=== PATIENT | female | born 1935 | race African-American/Black ===

== ENCOUNTER 2016-09-18 16:54 | Inpatient (IN) | payer OTHER ==
[~2016-09-18] VITALS: Ht 152.4 cm; Wt 61.0 kg
--- NOTE | ~2016-09-18 | HC ---
[facility] [place] [address] CONSULTATION Name: JANNETH RICHARDS Room #: 460-P ADM IN M.R.#: [id number] Admission: 09/18/16 Attend Phys: Bobby Chun MD Discharge: Date of : 37 Report #: [id number] THIS REPORT FOR: //name// CC: Bobby Chun REASON FOR CONSULTATION: End-stage renal disease. REASON FOR PRESENTATION: Weakness, confusion and lethargy. HISTORY OF PRESENT ILLNESS: The patient a prison facility who stays at the [facility]. She is able to provide me with most of her history. She stated that she felt weak the day of the admission and the nursing staff of the nursing facility noted that she had some mental status issues and was transferred for further evaluation and management. She was found to be a little bit hypertensive. Appropriate workup was initiated. I was consulted to manage her end-stage renal disease. In terms of renal-related issues, she has end-stage renal disease, maintained on hemodialysis every Saturday, Saturday and Saturday. She is not really sure what the cause of her end-stage renal disease was. She denies any headache. No dizziness. Evaluation clinically revealed that the patient is having symptoms consistent with stroke. She was deemed non-candidate for acute thrombolysis. She was admitted for further evaluation and management. She follows with Dr. Odonnell with [facility]. She dialyzes, as I have stated, Saturday, Saturday and Saturday. It does look like that she carries a long-standing diabetes mellitus and her end-stage renal disease is attributed to that. PAST MEDICAL HISTORY: 1. End-stage renal disease, maintained on dialysis for 6 and a half years, followed by Dr. Odonnell with [facility]. 2. Diabetes mellitus. 3. Hypertension. 4. Status post CABG times 3. 5. Anemia of chronic disease. MEDICATIONS: 1. Amlodipine. 2. Hydralazine. 3. Ipratropium. 4. Lantus. 5. Lispro. ALLERGIES: IBUPROFEN and SIMVASTATIN. SOCIAL HISTORY: She resides in a nursing facility. No drug or alcohol abuse. FAMILY HISTORY: She tells me that diabetes actually runs in her family. [facility] [address] [place] [address] CONSULTATION Name: JANNETH RICHARDS Room #: 460-P [facility] IN M.R.#: [id number] Admission: 09/18/16 Attend Phys: Bobby Chun MD Discharge: Date of : 37 Report #: [id number] REVIEW OF SYSTEMS: GENERAL: Significant for weakness. CARDIOVASCULAR: No chest pain or palpitation. PULMONARY: No cough or hemoptysis. GASTROINTESTINAL: No nausea or vomiting. GENITOURINARY: Anuric. MUSCULOSKELETAL: She is wheelchair bound and able to transfer herself from the bed to the chair and vice versa. PHYSICAL EXAMINATION: GENERAL: The patient is alert, oriented, in no apparent distress. VITAL SIGNS: Most recent blood pressure was 107/57. She was afebrile with a temperature of 37.1. HEAD AND NECK: No jugular venous distention. CHEST: Decreased air entry bilaterally with crackles. CARDIOVASCULAR: Regular with a soft systolic murmur. No rub detected. ABDOMEN: Soft, nontender, with no hepatosplenomegaly. LOWER EXTREMITIES: No edema. UPPER EXTREMITIES: Right AV fistula. LABORATORY DATA: Laboratory values reviewed. Mildly elevated troponin at 1.2. Potassium 4.5, creatinine 4.2 and BUN 28. Hemoglobin 10.9. IMAGES: Chest x-ray with very mild pulmonary congestions. Head CT, no acute abnormalities detected. ASSESSMENT, IMPRESSION AND PLAN: 1. End-stage renal disease. 2. Diabetes mellitus. 3. Hypertension. 4. Status post coronary artery bypass graft. 5. Mildly elevated troponin. 6. Dialysis will be arranged today with very mild fluid pull. 7. Hold some of her blood pressure medications. 8. Stroke workup is being implemented. She is deemed non-candidate for thrombolysis. 9. Blood sugar control. 10. If the patient wants to be aggressive with her therapy, we can address her troponin. However, I doubt that she will have any acute coronary events, even though she has the high risk including her previous history of CABG, comorbid conditions including diabetes mellitus and hypertension. <ELECTRONICALLY SIGNED> By: Rob Horton MD 09/20/16 0826 1107 1202 Rob Horton MD /nt
--- NOTE | ~2016-09-18 | EEG ---
[facility] [place] [address] ELECTROENCEPHALOGRAM Name: JANNETH RICHARDS Room #: 460-P ADM IN M.R.#: [id number] Admission: 09/18/16 Attend Phys: Bobby Chun MD Discharge: Date of : 37 Report #: [id number] THIS REPORT FOR: //name// CC: Bobby Chun DATE OF EE08/23/2016 This patient is complaining of some weakness. EEG was done to further evaluate that. This background activity in this patient's EEG is about 8 Hz and 15 microvolt. It is a poorly formed background activity. This patient goes to sleep that is associated with bilateral slowing and vertex sharp waves. Photic stimulation is unremarkable. IMPRESSION: Moderately abnormal EEG because it is disorganized and poorly formed. That is a nonspecific abnormality, which can occur with encephalopathy, effect of psychotropic medication, dementia, etc. Clinical correlation is recommended. Thank you very much for this referral. <ELECTRONICALLY SIGNED> By: Melvin Pereira MD 09/21/16 1930 1741 29 Melvin Pereira MD /nt
--- NOTE | ~2016-09-18 | 2DMMODE ---
[facility] [place] [address] 2 D/M-MODE ECHOCARDIOGRAM Name: JANNETH RICHARDS Room #: 460-P ADM IN .R.#: [id number] Admission: 09/18/16 Attend Phys: Bobby Chun MD Discharge: Date of : 37 Date of Service: 09/19/16 1054 Report #: [id number] THIS REPORT FOR: //name// APPROVED REPORT EXAM: Comprehensive 2D, Doppler, and color-flow Echocardiogram Patient Location: Bedside/ROOM 460 Blood Pressure: 107/57 mmHg HR: 71 bpm Rhythm: NSR Other Information Study Quality: Good Indications CVA/TIA Hx: CABG, HTN, DM, COPD Echo Enhancing Agent Indication: Rule out Shunt Agent/Amount Used: Agitated Saline cc 2D Dimensions RVDd: 42.68 mm LVEF(%): 45.93 (>50%) IVSd: 11.69 (7-11mm) LVOT Diam: 19.44 (18-24mm) LVDd: 45.66 mm PWd: 12.24 (7-11mm) Ascending Aorta: 36.65 mm LVDs: 35.24 (25-40mm) Aortic Root: 30.00 mm Cage's LVEF: 45.93 % Volumes Left Atrial Volume (Systole) Single Plane 4CH: 55.38 mL Single Plane 2CH: 59.49 mL LA ESV Index: 33.00 mL/m2 Aortic Valve AoV Peak Sanket.: 1.87 m/s AO Peak Gr.: 14.02 mmHg LV Max P.80 mmHg LV Max: 1.20 m/s Mitral Valve [facility] [address] [place] [address] 2 D/M-MODE ECHOCARDIOGRAM Name: JANNETH RICHARDS Room #: 460-P [facility] IN ..#: [id number] Admission: 09/18/16 Attend Phys: Bobby Chun MD Discharge: Date of : 37 Date of Service: 09/19/16 1054 Report #: [id number] MV PHT: 51.11 ms MV E Max Sanket.: 1.03 m/s E/A Ratio: 0.9 MV A Sanket.: 1.12 m/s MV Decel. Time: 176.24 ms TDI E/Lateral E': 17.00 E/Medial E': 444.00 Pulmonary Valve PV Peak Sanket.: 0.95 m/s PV Peak Gr.: 3.59 mmHg Tricuspid Valve TR Peak Sanket.: 3.02 m/s RAP Estimate: 5.00 mmHg TR Peak Gr.: 36.36 mmHg RVSP: 41.00 mmHg Left Ventricle The left ventricle is normal size. Regional wall motion abnormalities are noted. Mild concentric left ventricular hypertrophy. Left ventricular systolic function is normal. LVEF is 50-55%. Grade I - abnormal relaxation pattern. Right Ventricle Right ventricle is borderline dilated. Right ventricle is possibly hypokinetic not well visualized. Atria Left atrium is borderline dilated. IAS is mobile. Injection of bubbles documented no interatrial shunt. Right atrium is borderline dilated. Aortic Valve Aortic valve leaflets are moderately thickened. No aortic regurgitation is present. There is no aortic valvular stenosis. Mitral Valve Mitral valve leaflets are mildly thickened. Trace mitral regurgitation. Tricuspid Valve The tricuspid valve is normal in structure. There is moderate tricuspid regurgitation. The right atrial pressure is estimated at 5 mmHg. There is moderate pulmonary hypertension with an estimated PAP of 41mmHg. Pulmonic Valve The pulmonary valve is normal in structure. Mild pulmonic [address] [address] 2 D/M-MODE ECHOCARDIOGRAM Name: JOVAN RICHARDSARET Room #: 460-P [facility] IN .R.#: [id number] Admission: 09/18/16 Attend Phys: Bobby Chun MD Discharge: Date of : 37 Date of Service: 09/19/16 1054 Report #: [id number] regurgitation. Great Vessels The aortic root is normal in size. IVC is normal in size and collapses >50% with inspiration. Pericardium There is no pericardial effusion. <Conclusion> The left ventricle is normal size. Mild concentric left ventricular hypertrophy. LVEF is 50-55%. Right ventricle is borderline dilated. Right ventricle is possibly hypokinetic not well visualized. Left atrium is borderline dilated. Right atrium is borderline dilated. Aortic valve leaflets are moderately thickened. Mitral valve leaflets are mildly thickened. Trace mitral regurgitation. There is moderate tricuspid regurgitation. The right atrial pressure is estimated at 5 mmHg. There is moderate pulmonary hypertension with an estimated PAP of 41mmHg. Mild pulmonic regurgitation. <ELECTRONICALLY SIGNED> By: Carlos Manuel Saleem MD 09/19/16 1054 1054 1054 Carlos Manuel Saleem MD /INF
--- NOTE | ~2016-09-18 | HC ---
[facility] [place] [address] CONSULTATION Name: JANNETH RICHARDS Room #: 460-P ADM IN M.R.#: [id number] Admission: 09/18/16 Attend Phys: Bobby Chun MD Discharge: Date of : 37 Report #: [id number] THIS REPORT FOR: //name// CC: Bobby Chun DATE OF SERVICE: 09/19/2016 HISTORY OF PRESENT ILLNESS: This is a 81-year-old female patient who was evaluated by me for the possibility of stroke. She lives in [facility]. She was found to be confused and lethargic on the day of admission. It was at least moderately severe. It came in spontaneously. Nothing was making it better or worse. This was different than her baseline. She was brought to Emergency Room and worked up and was admitted. She has improved since then. She denies any previous history of similar symptoms, but the history is not reliable. REVIEW OF SYSTEMS: Indicate she uses a wheelchair. It is not certain what the reason for that is. Presently, she is complaining of foot pain. She really do not know how long it is going on. She does indicate she has diabetes. She has end-stage renal disease and she is on dialysis. She has gastroesophageal reflux. She has a history of coronary artery disease and hypertension. Record indicates that she has some dementia. She does not complain of any new eye, ENT, cardiac, respiratory, GI, , constitutional, dermatological, hematological, psychiatric, throat symptoms. She is a diabetic and she is complaining of foot pain. PAST MEDICAL HISTORY: Negative for stroke according to the patient, but MRI does show old stroke. FAMILY HISTORY: Negative for early age stroke. SOCIAL HISTORY: She still smokes. PHYSICAL EXAMINATION: Indicates she is alert. She is responsive. She can tell me what month it is. She knows what hospital she is in. Her speech looks intact and fund of knowledge and memory is somewhat diminished but may be her baseline. Cranial nerve examination 2-12 is mostly unremarkable. She has symmetrical strength, sensation, reflexes and tone in all 4 extremities. Reflexes are symmetrically diminished. Position sense looks intact. There is no cerebellar sign. I tried to look at the patient's fundus. Her pupils are small and I could not look at it. There is no meningeal sign. There is no carotid bruit. She is a well-developed individual who does not have any dysmorphic features of eyes, ears and face. Her vision and hearing looks adequate. She does not have a thyroid mass. Her heart sounds looks unremarkable and she does not have any [facility] [address] [place] [address] CONSULTATION Name: JANNETH RICHARDS Room #: [address] [place] [address] IN M.R.#: [id number] Admission: 09/18/16 Attend Phys: Bobby Chun MD Discharge: Date of : 37 Report #: [id number] loud murmur. She does have some rhonchi on both sides, but there is no marked respiratory difficulty. Her pulses are difficult to feel and she has no edema, cyanosis or jaundice. Vital signs indicate a blood pressure of 107/57, temperature is 98.8, pulse is 74 and respiration is 20. LABORATORY DATA: Indicates that she is anemic and her sodium is 134 and creatinine is 4.2. Blood glucose is 289. She did have an MRI and a carotid Doppler which was reviewed. The MRI shows old stroke, but no new stroke. TREATMENT: This patient had the above described episode. I am not sure what the etiology of this was. She does not have any radiographic evidence for stroke. It is possible it was TIA, but it is also possible it was encephalopathy from systemic problems. She has a previous stroke on her MRI and if she has encephalopathy, then she will have focal signs because of that stroke. That stroke does not appear to be new and does not appear to be the cause of the patient's problem. However, we need to do some further workup to decide about secondary prophylaxis. She is already on aspirin. We will check other workup as ordered and see if there is a need for statin. RECOMMENDATION: 1. Lipid profile. 2. EEG. 3. More blood workup as I ordered. 4. See if statin is indicated in this patient. 5. We might change her to a full dose of aspirin depending upon the other workup. 6. We will check an echo which is already ordered. 7. We will see what this workup show and decide about the further workup depending upon the outcome of this testing. Thank you very much for this referral. <ELECTRONICALLY SIGNED> By: Melvin Pereira MD 09/21/16 1926 1755 1950 Melvin Pereira MD /nt
--- NOTE | ~2016-09-18 | EEG ---
[facility] [place] [address] ELECTROENCEPHALOGRAM Name: JANNETH RICHARDS Room #: 460-P [facility] IN M.R.#: [id number] Admission: 09/18/16 Attend Phys: Bobby Chun MD Discharge: 09/27/16 Date of : 37 Report #: [id number] THIS REPORT FOR: //name// CC: Bobby Chun DATE OF SERVICE: 09/21/2016 INDICATION FOR PROCEDURE: This patient is being evaluated for altered mental status. INTERPRETATION: EEG was done by placing the electrodes by standard 10-20 system of electrode placement. Both referential and sequential montages were used for recording. Background activity in this patient's EEG is about 8 Hz and 25 microvolt. This background activity is intermixed with some theta range slowing. The patient goes to sleep that is associated with bilateral slowing and vertex sharp waves. Photic stimulation is unremarkable. Throughout the record, no active epileptiform activity was noticed. IMPRESSION: Moderately abnormal electroencephalogram because it is disorganized and poorly formed. That is a nonspecific abnormality, which can occur with encephalopathy, effect of psychotropic medication, postictal period. No active epileptiform activity was noticed during this record. Thank you very much for this referral. <ELECTRONICALLY SIGNED> By: Melvin Pereira MD 10/01/16 0628 1843 30 Melvin Pereira MD /nt
--- NOTE | ~2016-09-18 | EKG ---
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
--- NOTE | ~2016-09-18 | H ---
[facility] [place] [address] HISTORY AND PHYSICAL Name: JANNETH RICHARDS Room #: 460-P [facility] IN M.R.#: [id number] Admission: 09/18/16 Attend Phys: Bobby Chun MD Discharge: 09/27/16 Date of : 37 Report #: [id number] THIS REPORT FOR: //name// CC: Bobby Chun DATE OF SERVICE: 09/18/2016 CHIEF COMPLAINT: Altered mental status. HISTORY OF PRESENT ILLNESS: The patient is a 81-year-old -Chinese female who resides at [facility]. At baseline, she is wheelchair bound, but able to wheel herself up about the facility. She smokes 3 cigarettes a day and is at baseline, oriented x 3, though she has some underlying dementia. On the day of admission, nursing staff reported that she had noted weakness, confusion and lethargy. It was unknown how long she had been this way. She was brought to [facility] Emergency Room for evaluation where she was felt to have findings consistent with an acute stroke. She was given aspirin since it was unknown how long she had been this way. It was determined that she was not a candidate for acute thrombolysis. She was given aspirin and admitted for further medical management. PAST MEDICAL HISTORY: End-stage renal disease, on hemodialysis for 6-1/2 years, normally followed by Dr. Rahul Odonnell, diabetes mellitus type 2, gastroesophageal reflux disease, hypertension, coronary artery disease, goiter and dementia, anemia of chronic renal disease. ALLERGIES: IBUPROFEN and SIMVASTATIN. MEDICATIONS: Amlodipine 10 mg daily, artificial tears 1 drop both eyes every 4 hours as needed, Ativan 0.5 mg on Saturday, Saturday and Saturday prior to dialysis, gabapentin 100 mg b.i.d., hydralazine 10 mg b.i.d., Imdur 60 mg daily, latanoprost 0.005%, 1 drop both eyes at bedtime, Lexapro 10 mg daily, Ativan 0.5 mg every 6 hours as needed, melatonin 6 mg at bedtime, MiraLax 17 grams in 8 ounce water daily, Nephrocaps 1 mg daily, NovoLog sliding scale insulin, Percocet 7.5/325 one tablet every 4 hours as needed, albuterol 90 HFA inhaler 2 puffs q.4 hours p.r.n., Remeron 15 mg at bedtime, Renvela 800 mg with meals 3 times a day, Senna-S 1 tablet daily, Sensipar 1 tablet daily. FAMILY HISTORY: Noncontributory. SOCIAL HISTORY: The patient resides at [facility]. She is . She smokes 3 cigarettes a day and does not consume alcohol. REVIEW OF SYSTEMS: GENERAL: She is able to transfer herself from bed to chair. She wears glasses. She denies any cough or shortness of breath. She denies chest pain, [address] [address] HISTORY AND PHYSICAL Name: JANNETH RICHARDS Room #: 460-P [facility] IN M.R.#: [id number] Admission: 09/18/16 Attend Phys: Bobby Chun MD Discharge: 09/27/16 Date of : 37 Report #: [id number] palpitations, or edema. GASTROINTESTINAL: Negative. MUSCULOSKELETAL: Wheelchair bound, but able to transfer independently. NEUROLOGIC: As per history of present illness. PHYSICAL EXAMINATION: GENERAL: The patient is a pleasant, cooperative -Chinese female lying in bed in no apparent distress. VITAL SIGNS: Reveal that she is afebrile. In the emergency department, her pulse was 80, respiratory rate 13, blood pressure 107/56. Oxygen saturation is 96%. HEENT: Head is normocephalic, atraumatic. Pupils are equal and reactive. Extraocular muscles are intact. Oropharynx is moist. NECK: Supple. Trachea midline. LUNGS: Clear to auscultation. CARDIOVASCULAR: Regular rate and rhythm. ABDOMEN: Soft, nontender, nondistended with normoactive bowel sounds. SKIN: Warm and dry. Turgor adequate. LYMPHATICS: No cervical or axillary lymphadenopathy. NEUROLOGIC: She is awake, alert, oriented x 2. She thinks she is still at [facility] but she knows it is 2017. She has noted right nasolabial droop, otherwise no focal neurologic deficits. MUSCULOSKELETAL: Reveals 5/5 equal and symmetric strength throughout. LABORATORY DATA: BUN is 28, creatinine is 4.2, glucose is 141. AST is 42. INR is 1.0. Hemoglobin is 10.9. EKG shows sinus rhythm, rate of 80 with an incomplete right bundle branch block. RADIOLOGIC STUDIES: Include a chest x-ray showing cardiomegaly and mild pulmonary venous congestion and discoid left lower lobe subsegmental atelectasis. CT of head shows no acute intracranial process. ASSESSMENT: 1. Acute cerebrovascular accident with current findings of right nasolabial droop. Altered mental status has improved significantly and she is near baseline cognitively. Neurologic deficits resolved. This may just simply be a transient ischemic attack. 2. End-stage renal disease on hemodialysis. 3. Anemia of chronic renal disease. 4. Hypertension. 5. Diabetes mellitus type 2. 6. Coronary artery disease. 7. Gastroesophageal reflux disease. PLAN: Admission, we will consult Neurology and Nephrology. We will resume home medications. We will start her on mechanical soft diet with nectar thick [facility] [address] [place] [address] HISTORY AND PHYSICAL Name: JANNETH RICHARDS Room #: 460-P [facility] IN M.R.#: [id number] Admission: 09/18/16 Attend Phys: Bobby Chun MD Discharge: 09/27/16 Date of : 37 Report #: [id number] liquids, but we will ask PT, OT and ST to evaluate and treat. She may eventually need an MRI of the head, carotid Doppler or echocardiogram. We will order carotid Doppler and echo, but will defer MRI to neurologist. We will also resume home medications. <ELECTRONICALLY SIGNED> By: Bobby Chun MD 10/11/164 03 21 Bobby Chun MD /nt
--- NOTE | ~2016-09-18 | EKG ---
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 QUEVEDO : 1935 Requested By: Levy Jarquin Order Number: [id number] MD: Marquis Gorman Measurements Intervals [place] Rate: 80 P: 74 RI: 151 QRS: 67 QRSD: 118 T: -87 QT: 445 QTc: 514 Interpretive Statements Sinus rhythm Incomplete right bundle branch block Nonspecific ST and T wave abnormality No previous ECG available for comparison Electronically Signed On 09-19-2016 7:49:33 CDT by Marquis Gorman [email or web address] <ELECTRONICALLY SIGNED> By: Marquis Gorman MD, [facility] 09/19/16 0749 52 52 Marquis Gorman MD, [facility] /EPI
[~2016-09-18 16:54] MED LIST: ARICEPT 5 MG TAB5 MG PO; COLACE 100 MG100 MG PO; COMBIVENT INH; HUMALOG100 UNIT/1; HYDRALAZINE PO; LANTUS SUBQ; LISINOPRIL40 MG PO; NORVASC10 MG PO; PRED FORTE 1% EY5 M1 OP
[2016-09-18 16:56] VITALS: BP 107/56
[2016-09-18 17:09] LABS: ABSOLUTE NEUTROPHILS 7.1 thou/uL (1.4-8.2); EOSINOPHILS 2.2 % (0.0-3.0); HEMATOCRIT 32.3 % (37.0-47.0); HEMOGLOBIN 10.9 gm/dL (12.0-15.0); LYMPHOCYTES 15.9 % (24.0-44.0); MANUAL DIFF NO; MCH 28.3 pg (26.0-34.0); MCHC 33.8 g/dL (28.0-37.0); MCV 83.8 fL (80.0-100.0); MONOCYTES 9.2 % (1.0-8.0); PLATELET COUNT 229 thou/uL (150-400); POLYS 71.7 % (36.0-66.0); RBC 3.85 mil/uL (4.20-5.00); RDW 17.7 % (10.5-14.5); WBC 9.9 thou/uL (4.0-11.0)
[2016-09-18 17:18] LABS: CALCIUM 9.3 mg/dL (8.5-10.1); CREATININE 4.2 mg/dL (0.6-1.3); POTASSIUM 4.5 mmol/L (3.5-5.1)
[2016-09-18 17:26] LABS: ALBUMIN 2.6 g/dL (3.4-5.0); MAGNESIUM 2.4 mg/dL (1.8-2.4); TOTAL BILIRUBIN 0.4 mg/dL (<0.1-1.0); TOTAL PROTEIN 7.3 g/dL (6.4-8.2)
[2016-09-18 17:27] LABS: PROTIME 10.7 Seconds (9.3-11.4)
[2016-09-18 17:28] LABS: TROPONIN-I 1.22 ng/mL (<0.04-0.07)
[2016-09-18 18:40] VITALS: BP 94/48
[2016-09-18 19:00] VITALS: BP 108/52
[2016-09-19 00:13] VITALS: BP 89/56
[2016-09-19 04:00] VITALS: BP 115/57
[2016-09-19 08:17] VITALS: BP 107/57
[2016-09-19 20:00] VITALS: BP 119/54
[2016-09-20 04:00] VITALS: BP 116/56
[2016-09-20 06:30] LABS: ALBUMIN 2.8 g/dL (3.4-5.0); CALCIUM 9.1 mg/dL (8.5-10.1); PHOSPHORUS 3.9 mg/dL (2.5-4.9); POTASSIUM 4.8 mmol/L (3.5-5.1)
[2016-09-20 06:33] LABS: CREATININE 2.4 mg/dL (0.6-1.3)
[2016-09-20 06:48] LABS: CHOLESTEROL 245 mg/dL (<200); HDL CHOLESTEROL 96 mg/dL (>40); LDL CHOLESTEROL 126 mg/dL (<100); TC:HDL 2.6 Ratio (Not establshd); TRIGLYCERIDE 116 mg/dL (<150); VLDL 23 mg/dL (<40)
[2016-09-20 07:18] LABS: HEMATOCRIT 34.9 % (37.0-47.0); HEMOGLOBIN 11.7 gm/dL (12.0-15.0); MCH 28.5 pg (26.0-34.0); MCHC 33.4 g/dL (28.0-37.0); MCV 85.3 fL (80.0-100.0); RBC 4.09 mil/uL (4.20-5.00); WBC 4.6 thou/uL (4.0-11.0)
[2016-09-20 08:01] VITALS: BP 98/35
[2016-09-20 08:03] LABS: TSH 1.806 uIU/mL (0.358-3.740)
[2016-09-20 11:12] VITALS: BP 111/48
[2016-09-20 14:16] VITALS: BP 111/48
[2016-09-20 16:38] VITALS: BP 115/54
[2016-09-20 20:46] VITALS: BP 114/51
[2016-09-21 04:45] VITALS: BP 131/62
[2016-09-21 08:23] VITALS: BP 114/56
[2016-09-21 10:22] LABS: HEMATOCRIT 37.5 % (37.0-47.0); HEMOGLOBIN 12.3 gm/dL (12.0-15.0); MCH 28.2 pg (26.0-34.0); MCHC 32.7 g/dL (28.0-37.0); MCV 86.1 fL (80.0-100.0); RBC 4.35 mil/uL (4.20-5.00); RDW 17.6 % (10.5-14.5); WBC 5.8 thou/uL (4.0-11.0)
[2016-09-21 10:30] LABS: PROTIME 10.5 Seconds (9.3-11.4)
[2016-09-21 10:31] LABS: CALCIUM 9.3 mg/dL (8.5-10.1)
[2016-09-21 10:33] LABS: POTASSIUM 5.5 mmol/L (3.5-5.1)
[2016-09-21 10:34] LABS: CREATININE 3.9 mg/dL (0.6-1.3)
[2016-09-21 10:41] LABS: MAGNESIUM 2.3 mg/dL (1.8-2.4); TOTAL BILIRUBIN 0.3 mg/dL (<0.1-1.0); TOTAL PROTEIN 7.7 g/dL (6.4-8.2)
[2016-09-21 10:42] LABS: ALBUMIN 2.8 g/dL (3.4-5.0); TROPONIN-I 0.39 ng/mL (<0.04-0.07)
[2016-09-21 16:23] VITALS: BP 142/74
[2016-09-21 20:25] VITALS: BP 138/66
[2016-09-21 23:12] VITALS: BP 143/57
[2016-09-22 03:03] VITALS: BP 151/83
[2016-09-22 04:02] LABS: HEMATOCRIT 36.3 % (37.0-47.0); HEMOGLOBIN 11.9 gm/dL (12.0-15.0); MCH 28.1 pg (26.0-34.0); MCHC 32.8 g/dL (28.0-37.0); MCV 85.5 fL (80.0-100.0); RBC 4.25 mil/uL (4.20-5.00); RDW 17.6 % (10.5-14.5); WBC 4.3 thou/uL (4.0-11.0)
[2016-09-22 04:15] LABS: POTASSIUM 4.9 mmol/L (3.5-5.1)
[2016-09-22 04:19] LABS: CREATININE 2.1 mg/dL (0.6-1.3)
[2016-09-22 08:19] VITALS: BP 131/54
[2016-09-22 11:35] VITALS: BP 139/52
[2016-09-22 15:49] VITALS: BP 136/61
[2016-09-22 15:50] VITALS: BP 136/61
[2016-09-22 19:17] VITALS: BP 117/49
[2016-09-23 02:58] VITALS: BP 142/63
[2016-09-23 07:44] VITALS: BP 145/56
[2016-09-23 11:36] VITALS: BP 135/56
[2016-09-23 15:21] VITALS: BP 121/50
[2016-09-23 21:05] VITALS: BP 118/51
[2016-09-24 07:10] VITALS: BP 91/51
[2016-09-24 11:24] VITALS: BP 93/49
[2016-09-24 20:20] VITALS: BP 157/70
[2016-09-25 03:19] VITALS: BP 154/64
[2016-09-25 05:55] LABS: HEMATOCRIT 35.1 % (37.0-47.0); HEMOGLOBIN 11.6 gm/dL (12.0-15.0); MCH 28.4 pg (26.0-34.0); MCV 86.2 fL (80.0-100.0); RBC 4.07 mil/uL (4.20-5.00); RDW 17.3 % (10.5-14.5); WBC 5.3 thou/uL (4.0-11.0)
[2016-09-25 06:11] LABS: ALBUMIN 2.9 g/dL (3.4-5.0); CALCIUM 9.3 mg/dL (8.5-10.1); CREATININE 2.7 mg/dL (0.6-1.3); PHOSPHORUS 4.6 mg/dL (2.5-4.9); POTASSIUM 4.5 mmol/L (3.5-5.1)
[2016-09-25 07:20] VITALS: BP 148/72
[2016-09-25 11:53] VITALS: BP 136/70
[2016-09-25 14:11] LABS: HEP B SURFACE Ab(ANTI-HBS Reactive (())
[2016-09-25 16:18] VITALS: BP 138/72
[2016-09-25 19:45] VITALS: BP 134/67
[2016-09-26 03:45] VITALS: BP 164/89
[2016-09-26 07:28] VITALS: BP 103/60
[2016-09-26 11:22] VITALS: BP 90/46
[2016-09-26 15:24] VITALS: BP 88/46
[2016-09-26 21:28] VITALS: BP 147/72
[2016-09-26] MEDS ORDERED: FENOFIBRATE54 MG PO (23:56)
[2016-09-26] MEDS ORDERED: PREDNISONE 20 M20 M1 PO (23:59)
[2016-09-27] MEDS ORDERED: ADULT LOW DOSE81 MG PO
[2016-09-27] MEDS ORDERED: HYDROCODONE-AP1 EAC6 PO (00:01)
[2016-09-27] MEDS ORDERED: VAN500AD IVPB (00:07)
[2016-09-27] MEDS ORDERED: MIDODRINE HCL 55 M1 PO (00:08)
[2016-09-27] MEDS ORDERED: ATIVAN0.5 MG PO (00:17)
[2016-09-27 03:40] VITALS: BP 169/74
[2016-09-27 07:13] VITALS: BP 174/84
[2016-09-27] MEDS ORDERED: HUMALOG KW200 UNIT/1 IM (07:59)
[2016-09-27 11:53] VITALS: BP 153/74
[2016-10-06] MEDS ORDERED: NORCO 5-325 TA1 EACH PO (15:09)
== END 2016-09-27 13:11 | DRG 64 ==
LOC: ER 16:54 → 4W 18:00 → EROBS 18:00 → 4W 18:58
PROVIDERS: Emergency Medicine; Hospitalist; Internal Medicine; Internal Medicine Nephrology; Psychiatry & Neurology Neuromuscular Medicine
PROC: 5A1D60Z (ICD-10-PCS; principal; 2016-09-19)
DX: I63.9 Cerebral infarction, unspecified (principal); J69.0 Pneumonitis due to inhalation of food and vomit; N18.6 End stage renal disease; I12.0 Hypertensive chronic kidney disease with stage 5 chronic kidney disease or end stage renal disease; K21.9 Gastro-esophageal reflux disease without esophagitis; G40.909 Epilepsy, unspecified, not intractable, without status epilepticus; R09.02 Hypoxemia; H40.9 Unspecified glaucoma; F03.90 Unspecified dementia, unspecified severity, without behavioral disturbance, psychotic disturbance, mood disturbance, and anxiety; E11.22 Type 2 diabetes mellitus with diabetic chronic kidney disease; D63.8 Anemia in other chronic diseases classified elsewhere; F17.210 Nicotine dependence, cigarettes, uncomplicated; I95.9 Hypotension, unspecified; R47.02 Dysphasia; E78.5 Hyperlipidemia, unspecified; Z79.82 Long term (current) use of aspirin; Z79.899 Other long term (current) drug therapy; Z99.2 Dependence on renal dialysis; Z88.6 Allergy status to analgesic agent; Z88.8 Allergy status to other drugs, medicaments and biological substances; Z95.1 Presence of aortocoronary bypass graft; R53.1 Weakness
CPT/HCPCS: 10045; 32100